=== PATIENT | male | born 1965 | race Caucasian/White ===

== ENCOUNTER 2017-03-01 18:30 | Day surgery (SDC) | payer BC ==
[~2017-03-01] VITALS: Ht 162.6 cm; Wt 63.5 kg
--- NOTE | ~2017-03-01 | OP ---
PATIENT NAME: TARIK JALLOH MEDICAL RECORD: [id number] :61 [facility] DATE: SURGEON: JACINTO DUNHAM MD DATE OF OPERATION: 03/01/2017 SURGEON: Jacinto Dunham MD ANESTHESIA: General anesthesia by Tayler Encinas CRNA. PREOPERATIVE DIAGNOSIS: Left hydrocele. POSTOPERATIVE DIAGNOSIS: Left hydrocele. PROCEDURE: Left hydrocelectomy, Jaboulay procedure. BLOOD LOSS: None. CLINICAL HISTORY: This is a 51-year-old male with a progressively enlarging swelling of the left scrotum. Ultrasound revealed that this was a hydrocele. It has become large enough to become a bother to him when he is walking or trying to sit. HE IS ALLERGIC TO TOMATOES. He was given Ancef presentation team member to the OR. DESCRIPTION OF PROCEDURE: The patient was given induction of general anesthesia. He was then placed in supine position and prepped and draped. The patient had already shaved himself at home. A 3-cm long incision was made in the median raphe of the scrotum overlying the hydrocele. Actually, we had to go paramedian because right on the median surface was a very large cutaneous vein. Once the skin was incised, we went down to the dartos fascia with cautery. A small incision then had to be made with #15 blade in order to open up the hydrocele sac. The hydrocele fluid was drained. Allis clamps were placed along the edges of the small hydrocele drainage hole. The incision was lengthened to the full length on the tunica vaginalis. The testicle was then everted out through the hemiscrotum. There is quite significant adhesions of the tunica vaginalis to the testicle indicating prior inflammation or infection. As such, there was only sufficient length of tunica vaginalis to reapproximate behind the cord. No excess length could be trimmed. The reapproximation behind the cord of the tunica vaginalis was performed using a running 3-0 Vicryl. Then, the testicle was placed back into its hemiscrotum. The dartos fascia was reapproximated using simple interrupted 3-0 Vicryl. The 4-0 Vicryl simple interrupted sutures were then used to close the skin. A 0.25% Marcaine without epinephrine was used to infiltrate the skin edges for local anesthetic. The patient then had fluffs and mesh panties given to him. He can remove the dressing tomorrow. He has to avoid showering for 48 hours. I can see him in followup in 2 weeks' time. TRANSINT:[id number] Voice Confirmation ID: [id number] DOCUMENT ID: [id number] OPERATIVE REPORT [id number] TARIK JALLOH, JACINTO Mast MD at 1101 CC: [id number] DICTATION DATE: 03/01/17 1355 [employer] ATTENDANT: 03/02/17 0829 [facility] 03/01/17 [id number] [place] [address]
[2017-03-01 10:31] VITALS: BP 136/87; Ht 162.6 cm; Wt 63.5 kg
== END 2017-03-01 18:32 | disposition home or self-care (01) ==
LOC: D.OPS 18:30
DX: N43.3 Hydrocele, unspecified (principal); Z01.812 Encounter for preprocedural laboratory examination

== ENCOUNTER → 2017-04-06 14:53 | Outpatient (CLI) | payer BC ==
[2017-03-01 10:31] VITALS: BMI 24.0
== END | disposition home or self-care (01) ==
LOC: D.US 14:53
DX: K46.0 Unspecified abdominal hernia with obstruction, without gangrene (principal)

== ENCOUNTER 2017-04-25 07:00 | Day surgery (SDC) | payer BC ==
[~2017-04-25] VITALS: Ht 162.6 cm; Wt 62.6 kg
--- NOTE | ~2017-04-25 | OP ---
PATIENT NAME: TARIK JALLOH MEDICAL RECORD: [id number] :61 LOCATION:[facility] ADMISSION DATE: SURGEON: JOSE DUNHAM MD DATE OF OPERATION: 04/25/2017 SURGEON: Jose Dunham MD ANESTHESIA: General anesthesia by Dev Ruggiero CRNA PREOPERATIVE DIAGNOSIS: Hydrocele of left spermatic cord. FINDINGS: Hydrocele of left spermatic cord. PROCEDURE: Left cord hydrocelectomy. SPECIMENS: Hydrocele sac. BLOOD LOSS: None. CLINICAL HISTORY: This is a 52-year-old male, who recently had a left hydrocelectomy performed. About a month after the surgery, he presented with new swelling in the spermatic cord region of the left spermatic cord. It was a new bulge which was just cranial to the testicle. He now would like to get this drained and also to have it treated so that it will not recur. There is no hydrocele itself around the testicle. HE IS ALLERGIC TO TOMATOES. We gave him Ancef five piece expansion maker hand to the OR. DESCRIPTION OF PROCEDURE: The patient was in supine position. He was given induction of general anesthesia. He was then prepped and draped. I reopened his hydrocelectomy incision. We infiltrated the wound with 0.25% Marcaine without epinephrine. Going into the left hemiscrotum, the testicle itself was intact and there was no fluid around it. The testicle was then brought out through the incision. I stripped the tunica back along the cord until we could get the whole hydrocele of the cord out through the incision. We then opened up the large hydrocele of the cord. Allis clamps were placed on the edges of the incision and the Yankauer suction was placed in there to drain the hydrocele of the cord. We placed more clamps around it circumferentially. The tunica vaginalis which forms the hydrocele of the cord was excised and sent to pathology as a specimen. We then placed sutures of 4-0 Vicryl in simple interrupted fashion to marsupialize the edges of this hydrocele so that it would remain open. The edges were tacked to other tissues to keep it open. Once this was done, all bleeding points are cauterized. This testicle was then returned to its hemiscrotum. The scrotal skin was closed in 2 layers. The dartos fascia was closed using running 4-0 Vicryl. The skin was then closed using simple interrupted 4-0 Monocryl. Fluffs and mesh panties were applied. The patient will be going home today. I will see him in followup in 1-2 weeks to check on the wound healing. TRANSINT:[id number] Voice Confirmation ID: [id number] DOCUMENT ID: [id number] OPERATIVE REPORT [id number] TARIK JALLOH, JOSE Mast MD at 1136 CC: [id number] DICTATION DATE: 04/25/17 1052 DRAWING SUPERVISOR: 04/25/17 1123 [facility] [address] [place] [address]
[~2017-04-25 07:00] MED LIST: ASCORBIC ACID500 MG PO; VITAMIN B-121000 MCG PO; VITAMIN D31000 UNI2 PO
[2017-04-25 08:04] VITALS: BMI 23.7
[2017-04-25 08:16] VITALS: BP 135/76; Ht 162.6 cm; Wt 62.6 kg
== END 2017-04-25 12:45 | disposition home or self-care (01) ==
LOC: D.OPS 07:00 → D.PAN 08:55 → D.OPS 09:00 → D.PAN 09:30 → D.OPS 09:30
DX: N43.3 Hydrocele, unspecified (principal); Z87.891 Personal history of nicotine dependence; Z01.812 Encounter for preprocedural laboratory examination